=== PATIENT | male | born 1955 | race Caucasian/White ===

== ENCOUNTER → 2023-05-20 08:06 | Outpatient (REF) | payer MEDICARE, OTHER, SELFPAY | LOC: RAD 08:06 | PROVIDERS: ATTENDING PHYSICIAN Surgery Vascular Surgery; FAMILY PHYSICIAN Internal Medicine Medical Oncology | DX: I65.23 Occlusion and stenosis of bilateral carotid arteries (principal); I71.40 Abdominal aortic aneurysm, without rupture, unspecified | CPT/HCPCS: 76770; 93880 ==

== ENCOUNTER → 2023-09-26 06:26 | Day surgery (SDC) | payer MEDICARE, OTHER, SELFPAY | LOC: GI 06:26 | PROVIDERS: ATTENDING PHYSICIAN Internal Medicine Gastroenterology | DX: K57.30 Diverticulosis of large intestine without perforation or abscess without bleeding (principal); K64.8 Other hemorrhoids; K63.5 Polyp of colon; R19.4 Change in bowel habit | CPT/HCPCS: 45380; 88305 ==

== ENCOUNTER → 2024-06-01 10:01 | Outpatient (REF) | payer MEDICARE, OTHER, SELFPAY | LOC: DHVS 10:01 | PROVIDERS: ATTENDING PHYSICIAN Registered Nurse | DX: I71.40 Abdominal aortic aneurysm, without rupture, unspecified (principal); I65.23 Occlusion and stenosis of bilateral carotid arteries | CPT/HCPCS: 76770; 93880 ==